=== PATIENT | female | born 1975 | race Caucasian/White ===

== ENCOUNTER 2023-01-07 23:45 | Emergency (ER) | payer OTHER ==
[~2023-01-07] VITALS: Ht 165.1 cm; Wt 64.5 kg
[2023-01-07] MEDS ORDERED: COSENTYX P150 MG/1 M SQ (23:59)
[2023-01-08] MEDS ORDERED: VENTOLIN HFA18 GM
[2023-01-08] MEDS ORDERED: BETAMETHASONE D15 G2
[2023-01-08 00:34] VITALS: BP 127/76
== END 2023-01-08 00:34 | disposition home or self-care (01) ==
LOC: ED 23:45
DX: T78.3XXA Angioneurotic edema, initial encounter (principal); Z88.8 Allergy status to other drugs, medicaments and biological substances; Z79.899 Other long term (current) drug therapy
CPT/HCPCS: 99284

== ENCOUNTER 2023-05-27 09:53 | Emergency (ER) | payer OTHER ==
[~2023-05-27] VITALS: Ht 165.1 cm; Wt 60.8 kg
[~2023-05-27 09:53] MED LIST: BETAMETHASONE D15 G2; COSENTYX P150 MG/1 M SQ; VENTOLIN HFA18 GM
[2023-05-27] MEDS ORDERED: VITAMIN D21250 MCG PO (10:25)
[2023-05-27 10:30] LABS: BILIRUBIN, URINE NEGATIVE (negative); BLOOD/HGB, URINE LARGE (Negative); KETONE, URINE TRACE (Negative); LEUK ESTERASE, URINE NEGATIVE (negative); NITRITE, URINE NEGATIVE (negative)
[2023-05-27 10:37] LABS: RED BLOOD CELLS, URINE >50 /hpf (0-5); WHITE BLOOD CELLS, URINE 0-1 /HPF (0-5)
[2023-05-27 10:38] LABS: BACTERIA, URINE NONE SEEN /hpf (negative); CASTS, URINE NONE SEEN \\lpf; COLLECTION TYPE, URINE CLEAN CATCH; CRYSTALS, URINE CALCIUM OXALATE 1+ (0-1+); EPITHELIAL CELLS, URINE SQUAMOUS 1+ /lpf (0-1+); REFLEX CULTURE, URINE No (No)
[2023-05-27 11:06] LABS: BASOPHILS 0.4 % (0-2); EOSINOPHILS 2.4 % (0-6); HEMATOCRIT 39.5 % (35.0-50.0); HEMOGLOBIN 13.4 g/dL (12.0-18.0); LYMPHOCYTES 23.3 % (24-44); MCH 31.8 (27-36); MCHC 33.9 g/dl (30-36); MCV 93.7 fl (81-99); MONOCYTES 7.5 % (0-12); NEUTROPHILS 66.4 % (39-80); PLATELET COUNT 272 K/uL (140-440); RBC 4.22 M/ul (4.3-5.7); RDW 12.3 (10.5-15.0)
[2023-05-27 11:21] LABS: ALBUMIN 3.5 g/dL (3.4-5.0); ALBUMIN/GLOBULIN RATIO 0.83 (1.1-2.4); ANION GAP 9.5 (7-21); BILIRUBIN, TOTAL 0.3 ng/dL (0.2-1.0); BUN/CREATININE RATIO 17.56 (6.0-28.6); CALCIUM 9.1 mg/dL (8.5-10.1); CREATININE, SERUM 0.74 mg/dL (0.55-1.02); POTASSIUM 3.5 mmol/L (3.5-5.1); PROTEIN, TOTAL 7.7 g/dL (6.4-8.2)
[2023-05-27] MEDS ORDERED: FLOMAX0.4 MG PO (11:51)
[2023-05-27] MEDS ORDERED: HYDROCODON-ACE1 EA11 PO (11:51)
[2023-05-27 12:02] VITALS: BP 112/75
== END 2023-05-27 12:03 | disposition home or self-care (01) ==
LOC: ED 09:53
PROVIDERS: Emergency Medicine
DX: N13.2 Hydronephrosis with renal and ureteral calculous obstruction (principal); Z79.899 Other long term (current) drug therapy; Z79.51 Long term (current) use of inhaled steroids; Z79.52 Long term (current) use of systemic steroids; Z88.8 Allergy status to other drugs, medicaments and biological substances
CPT/HCPCS: 36415; 76775; 80053; 81001; 83605; 85025; 96374; 96375; 99284-25; A9270; J1885; J2405; J7030